=== PATIENT | male | born 1995 | race African-American/Black ===

== ENCOUNTER 2018-12-13 05:39 | Emergency (ER) | payer SELFPAY ==
[2018-12-13] MEDS ORDERED: SODIUM CHLORIDE 0.9% 500 ML INFUS.BAG IV ONE (06:06)
--- NOTE | 2018-12-13 06:09 | PDOC ---
Attending Attestation - Resident Resident Name: Helen Kauffman - ED Attending Attestation I have performed the following: I have examined & evaluated the patient, The case was reviewed & discussed with the resident, I agree w/resident's findings & plan - HPI HPI: 12/13/18 06:07 Pt comes with flulike sx; he works in a middle school. Pt states that he has sore throat as well as nasal congestion, headache and fever. Pt is dehydrated. - Physicial Exam PE: 12/13/18 06:08 Agree with resident exam - Medical Decision Making 12/13/18 06:08 Influenza culture Strep throat culture IVF hydration given 12/13/18 06:56 Pt is flu positive. 12/13/18 19:45 Pt also strep + he will be treated with tamiflu and IM LA bicillin and day team will d/c home once he is hydrated and feeling better.
--- NOTE | 2018-12-13 06:19 | PDOC ---
History of Present Illness - General Chief Complaint: Nausea/Vomiting Stated Complaint: NAUSEA/VOMITTING Time Seen by Provider: 12/13/18 05:45 - History of Present Illness Initial Comments: Derrick Dunbar is a 23yo man with a PMH of asthma who presents with fever to 101F at home, headache, sinus congestion, sore throat, cough, nausea/vomiting, body aches, and general malaise since Friday night. He has also had worsening of his typical asthma symptoms and has only moderate relief from his inhaler. He states that he has been unable to eat or drink anything since Friday, and he feels very dehydrated. His symtpoms did not change today, but he "could not take it anymore" and presented for evaluation. 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 Several have been obviously sick recently. Past History - Past Medical History Allergies/Adverse Reactions: Allergies Allergy/AdvReac Type Severity Reaction Status Date / Time No Known Allergies Allergy Verified 12/13/18 06:37 Home Medications: Ambulatory Orders Albuterol Sulfate Inhaler - [Ventolin HFA Inhaler -] 1 - 2 inh IH QID #0 inhaler 05/17/13 Oseltamivir Phosphate [Tamiflu -] 75 mg PO BID #10 capsule 12/13/18 Anemia: No Asthma: No Cancer: No Cardiac Disorders: No CVA: No COPD: No CHF: No Dementia: No Diabetes: Yes GI Disorders: No HTN: Yes Hypercholesterolemia: No Liver Disease: No Seizures: No Thyroid Disease: No - Surgical History Abdominal Surgery: No Appendectomy: No Cardiac Surgery: No Cholecystectomy: No Lung Surgery: No Neurologic Surgery: No Orthopedic Surgery: No - Immunization History Immunization Up to Date: Yes - Suicide/Smoking/Psychosocial Hx Smoking Status: No Smoking History: Never smoked Number of Cigarettes Smoked Daily: 0 Hx Alcohol Use: No Drug/Substance Use Hx: No Substance Use Type: None Hx Substance Use Treatment: No Review of Systems - Review of Systems Comments:: General: +fevers, +poor appetite, +malaise, +body aches HEENT: No changes in vision, no changes in hearing, +congestion, +sore throat CV: No chest pain, no palpitations, no LE edema Pulm: No SOB, +cough, +wheezing GI: +nausea, +vomiting, no change in bowel habits, no melena : No frequency, no urgency, no dysuria Musc: No back pain, no joint swelling, no recent injury. +overall body aches Skin: No rash, no lesions, no erythema Endo: No excessive thirst, no heat/cold intolerance Heme: No unusual bruising or bleeding, no swollen glands Neuro: No syncope, no numbness/tingling, no focal weakness Vasc: No claudication Psych: No recent change in mood, no SI or HI *Physical Exam - Physical Exam Comments: General: Uncomfortable, ill appearing, no acute distress HEENT: PERRL, EOMI, dry lips, voice normal. TM clear bilaterally. Slight TTP on frontal sinuses. Pharyngeal erythema but no exudates. Cards: Borderline tachycardic, regular, no murmur Pulm: Comfortable on room air, clear to auscultation bilaterally Abd: Soft, nondistended. Mild diffusely TTP : No CVA tenderness Ext: Atraumatic. No LE edema. ROM intact, moves all extremities Vasc: Extremities WWP. Skin: Normal color, no rashes or lesions Neuro: A&Ox3, CN grossly intact, normal speech, motor/sensory grossly intact and symmetric Psych: Mood appropriate to situation ED Treatment Course - Medications Given in the ED: ED Medications Discontinued Medications Generic Name Dose Route Start Last Admin Trade Name Akinq PRN Reason Stop Dose Admin Sodium Chloride 1,000 ml 12/13/18 06:06 12/13/18 06:11 Normal Saline - IV 12/13/18 06:07 1,000 ml ONCE ONE Administration Medical Decision Making - Medical Decision Making 12/13/18 06:20 oscali Dunbar is a 23yo man with a PMH of asthma who presents with fever to 101F at home, headache, sinus congestion, sore throat, cough, nausea/vomiting, body aches, and general malaise since Friday night. - Influenza and rapid strep - 1L NS bolus for dehydration, has not taken PO secondary to vomiting and likely dehydrated. Will reassess - Needs vitals, temp checked 12/13/18 06:37 - Temp 102. IV acetaminophen ordered for fever as Derrick is not tolerating PO 12/13/18 07:00 - Positive for influenza A - Tamiflu ordered in the ED, has been less than 48hrs - Will complete acetaminophen, IVF and reassess - Discussed home care at length with Mr Dunbar and his mother. Will need to stay home from work until symptoms resolve. Signed out to Dr Becker for any additional ED management. Discussed with Dr Valenzuela. Helen Kauffman PGY1 *DC/Admit/Observation/Transfer Diagnosis at time of Disposition: Influenza A - Discharge Dispostion Disposition: HOME Condition at time of disposition: Stable Decision to Admit order: No - Prescriptions Prescriptions: Oseltamivir Phosphate [Tamiflu -] 75 mg PO BID #10 capsule - Referrals Referrals: [facility] [place] [facility] [place] [Provider Group] - Patient Instructions Printed Discharge Instructions: DI for Influenza -- Adult Additional Instructions: Discharge Instructions: You were seen in the ER for fever, sore throat, congestion, cough, and nausea/ vomiting. You were diagnosed with influenza A (the flu) AND with strep throat. You were given IV fluids, Tamiflu, and a penicillin shot. The penicillin should treat your strep throat, and you should start feeling better soon. Home Care and Follow Up: - You have been prescribed a medication called Tamiflu for influenza. You were given the first dose in the ER, but you will need to take this twice per day for 5 days at home. The first home dose will be tonight, so make sure you pick it up today. Do not stop taking this early even if you feel better. - You may use over the counter medications as needed for pain at home. 650- 1000mg acetaminophen (Tylenol) or 600mg ibuprofen (Motrin or Advil) can be used every 6-8 hours. If needed for continued pain or fever to 101F or higher, these medications may be alternated every 3-4 hours. For example, you received ibuprofen at 9pm, so you may take acetaminophen at midnight, ibuprofen at 3am, acetaminophen at 6am. - You can use over the counter decongestants or throat lozenges for symptoms if you choose to do so. Be cautious about getting cold medicines as many of these contain multiple medications such as acetaminophen. Do not take additional acetaminophen (Tylenol) for pain or fever if you are taking a cold medicine that already contains acetaminophen. It can be dangerous to take more than 4000mg of acetaminophen per day, so be aware of what you are taking. - Using a humidifier in your room near your bed can help with a cough and congestion. - Make sure that you are drinking PLENTY of fluids at home. Water, juice, sports drinks, and broth are good options. Popsicles and jello count as fluids, and they may help sooth a sore throat. Drink in small sips throughout the day, but try to drink at least 8 cups of fluids total throughout the day. It is OK if you are not hungry and do not eat for a day or two as long as you are staying hydrated. - DO NOT go back to work until you are feeling better. - Make an appointment to follow up with your primary doctor if you are not feeling better within 3-4 days. - Seek immediate medical care if you have difficulty breathing, high fever over 103F that does not improve with medications, or have severe vomiting/pain that prevents you from drinking water. - Post Discharge Activity Forms/Work/School Notes: Back to Work
[2018-12-13] MEDS ORDERED: ACETAMINOPHEN 1000 MG/100 ML VIAL (NON FORMULARY) IVPB ONE (06:30)
[2018-12-13] MEDS ORDERED: ACETAMINOPHEN INJECTION 100 ML IVPB ONE (06:33)
[2018-12-13] MEDS ORDERED: IBUPROFEN 600 MG TABLET (FP) PO ONE ×2 (06:56→07:11)
[2018-12-13 06:58] VITALS: BMI 24.3
[2018-12-13] MEDS ORDERED: OSELTAMIVIR PHOSPHATE 75 MG CAPSULE PO ONE (07:00)
--- NOTE | 2018-12-13 07:04 | PDOC ---
*Physical Exam - Vital Signs Last Vital Signs Temp Pulse Resp BP Pulse Ox 102.6 F H 104 H 20 122/55 L 100 12/13/18 06:22 12/13/18 06:22 12/13/18 06:22 12/13/18 06:22 12/13/18 06:22 - Physical Exam Comments: 12/13/18 07:04 Received sign out from Dr. Kauffman. 23 yo M presenting to the emergency department with flu like symptoms with a positive influenza test. <Lon Becker - Last Filed: 12/13/18 09:35> - Vital Signs Last Vital Signs Temp Pulse Resp BP Pulse Ox 98.8 F 78 18 114/57 L 99 12/13/18 08:10 12/13/18 08:10 12/13/18 08:10 12/13/18 08:10 12/13/18 08:10 <Chio Tai - Last Filed: 12/13/18 11:02> ED Treatment Course - Medications Given in the ED: ED Medications Discontinued Medications Generic Name Dose Route Start Last Admin Trade Name Freq PRN Reason Stop Dose Admin Acetaminophen 1,000 mg 12/13/18 06:30 12/13/18 06:34 Ofirmev Injection - IVPB 12/13/18 06:31 1,000 mg ONCE ONE Administration Sodium Chloride 1,000 ml 12/13/18 06:06 12/13/18 06:11 Normal Saline - IV 12/13/18 06:07 1,000 ml ONCE ONE Administration <Lon Becker - Last Filed: 12/13/18 09:35> - Medications Given in the ED: ED Medications Discontinued Medications Generic Name Dose Route Start Last Admin Trade Name Freq PRN Reason Stop Dose Admin Acetaminophen 1,000 mg 12/13/18 06:30 12/13/18 06:34 Ofirmev Injection - IVPB 12/13/18 06:31 1,000 mg ONCE ONE Administration Ibuprofen 600 mg 12/13/18 06:56 12/13/18 07:15 Motrin - PO 12/13/18 06:57 600 mg ONCE ONE Administration Oseltamivir Phosphate 75 mg 12/13/18 07:00 12/13/18 07:15 Tamiflu - PO 12/13/18 07:01 75 mg ONCE ONE Administration Penicillin G Benzathine 1,200,000 unit 12/13/18 07:08 12/13/18 07:16 Bicillin L-A - IM 12/13/18 07:09 1,200,000 unit ONCE ONE Administration Sodium Chloride 1,000 ml 12/13/18 06:06 12/13/18 06:11 Normal Saline - IV 12/13/18 06:07 1,000 ml ONCE ONE Administration <AbidaChio Berger - Last Filed: 12/13/18 11:02> Medical Decision Making - Medical Decision Making 12/13/18 11:[address] Valenzuela pending reeval Flu positive, will rx tamiflu Strep positive, given IM bicillin VS improved, given IVF and hydration. tolerating PO clinically improved. DC in stable condition, PCP followup, medication compliance and use discussed, take with food to min GI effects. return precautions provided. <Chio Tai - Last Filed: 12/13/18 11:02> *DC/Admit/Observation/Transfer <Lon Becker - Last Filed: 12/13/18 09:35> <Chio Tai - Last Filed: 12/13/18 11:02> Diagnosis at time of Disposition: Influenza A - Discharge Dispostion Disposition: HOME Condition at time of disposition: Stable - Prescriptions Prescriptions: Oseltamivir Phosphate [Tamiflu -] 75 mg PO BID #10 capsule - Referrals Referrals: [facility] [place] [facility] [place] [Provider Group] - Patient Instructions Printed Discharge Instructions: DI for Influenza -- Adult Additional Instructions: Discharge Instructions: You were seen in the ER for fever, sore throat, congestion, cough, and nausea/ vomiting. You were diagnosed with influenza A (the flu) AND with strep throat. You were given IV fluids, Tamiflu, and a penicillin shot. The penicillin should treat your strep throat, and you should start feeling better soon. Home Care and Follow Up: - You have been prescribed a medication called Tamiflu for influenza. You were given the first dose in the ER, but you will need to take this twice per day for 5 days at home. The first home dose will be tonight, so make sure you pick it up today. Do not stop taking this early even if you feel better. - You may use over the counter medications as needed for pain at home. 650- 1000mg acetaminophen (Tylenol) or 600mg ibuprofen (Motrin or Advil) can be used every 6-8 hours. If needed for continued pain or fever to 101F or higher, these medications may be alternated every 3-4 hours. For example, you received ibuprofen at 9pm, so you may take acetaminophen at midnight, ibuprofen at 3am, acetaminophen at 6am. - You can use over the counter decongestants or throat lozenges for symptoms if you choose to do so. Be cautious about getting cold medicines as many of these contain multiple medications such as acetaminophen. Do not take additional acetaminophen (Tylenol) for pain or fever if you are taking a cold medicine that already contains acetaminophen. It can be dangerous to take more than 4000mg of acetaminophen per day, so be aware of what you are taking. - Using a humidifier in your room near your bed can help with a cough and congestion. - Make sure that you are drinking PLENTY of fluids at home. Water, juice, sports drinks, and broth are good options. Popsicles and jello count as fluids, and they may help sooth a sore throat. Drink in small sips throughout the day, but try to drink at least 8 cups of fluids total throughout the day. It is OK if you are not hungry and do not eat for a day or two as long as you are staying hydrated. - DO NOT go back to work until you are feeling better. - Make an appointment to follow up with your primary doctor if you are not feeling better within 3-4 days. - Seek immediate medical care if you have difficulty breathing, high fever over 103F that does not improve with medications, or have severe vomiting/pain that prevents you from drinking water. - Post Discharge Activity Forms/Work/School Notes: Back to Work
[2018-12-13] MEDS ORDERED: PENICILLIN G BENZATHINE 1,200,000 UNIT/2 ML PFS IM ONE ×2 (07:08→07:12)
[2018-12-13] MEDS ORDERED: OSELTAMIVIR PHOSPHATE 75 MG CAPSULE ONE (07:11)
[2018-12-13 08:10] VITALS: BP 114/57; PULSE 78; TEMP 98.8
== END 2018-12-13 11:01 | disposition home or self-care (01) ==
LOC: JER 05:39
DX: J09.X2 Influenza due to identified novel influenza A virus with other respiratory manifestations (principal); J02.0 Streptococcal pharyngitis; B95.0 Streptococcus, group A, as the cause of diseases classified elsewhere
CPT/HCPCS: 87804; 87880; 99283-25; J0131